=== PATIENT | male | born 1955 | race Two or more races ===

== ENCOUNTER 2020-09-11 17:10 | Inpatient (IN) | payer MEDICARE, MEDICAID ==
[~2020-09-11] VITALS: Ht 172.7 cm; Wt 64.0 kg
[2020-09-11 17:59] LABS: Eosinophils # (auto) 0.1 10 ^3/uL (0-0.8); Monocytes # (auto) 0.5 10 ^3/uL (0-1.3); Neutrophils # (auto) 3.4 10 ^3/uL (1.6-8.6); White Blood Cell 4.6 10^3/uL (4.4-10.8)
[2020-09-11 18:01] LABS: Basophils # (auto) 0.1 10 ^3/uL (0-0.2); Basophils % (auto) 1.8 % (0.0-2.0); Eosinophils % (auto) 2.1 % (0.0-7.0); Hematocrit 29.5 % (41.0-53.0); Hemoglobin 9.4 g/dL (13.5-17.5); Lymphocytes # (auto) 0.5 10 ^3/uL (0.4-5.4); Lymphocytes % (auto) 11.5 % (10.0-50.0); Mean Corpuscular Hemoglobin 24.7 pg (28.0-32.0); Mean Corpuscular Hgb Conc. 31.9 g/dL (32.0-36.0); Mean Corpuscular Volume 77.3 fL (80.0-100.0); Monocytes % (auto) 10.2 % (0.0-12.0); Neutrophils % (auto) 74.4 % (37.0-80.0); Nucleated Red Blood Cells % 0.2 %; Red Blood Cells 3.82 10^6/uL (4.5-5.90); Red Cell Distribution Width 17.4 % (11.8-14.3)
[2020-09-11 18:13] LABS: Albumin 3.4 g/dL (3.4-5.0); Anion Gap 5 (5-15); Blood Urea Nitrogen 16 mg/dL (7-18); Calcium 8.6 mg/dL (8.5-10.1); Carbon Dioxide 26 mmol/L (21-32); Chloride 108 mmol/L (98-107); Glucose 92 mg/dL (74-106); Magnesium 2.3 mg/dL (1.6-2.6); Potassium 3.5 mmol/L (3.5-5.1); Sodium 139 mmol/L (136-145)
[2020-09-11 18:29] LABS: Alanine Aminotransferase 26 U/L (16-61); Alkaline Phosphatase 168 U/L (45-117); Aspartate Aminotransferase 28 U/L (15-37); BUN/Creatinine Ratio 10.3; Bilirubin, Total 1.1 mg/dL (0.2-1.0); GFR African American 58 mL/min; GFR Non-African American 48 mL/min; Total Protein 8.3 g/dL (6.4-8.2)
[2020-09-11 18:31] LABS: INR 2.38 (0.9-1.15); Partial Thromboplastin Time 36.6 sec (23.0-31.2)
[2020-09-11] MEDS ORDERED: ONDANSETRON HCL 4 MG/2 ML VIAL IV PRN (20:15)
[2020-09-11] MEDS ORDERED: NITROGLYCERIN 0.4 MG SL TAB SL PRN (20:15)
[2020-09-11] MEDS ORDERED: LORazepam 0.5 MG TAB PO PRN (20:15)
[2020-09-11] MEDS ORDERED: MORPHINE SULFATE INJECTION 2 MG/ML SYRG IV PRN ×2 (20:15)
[2020-09-11] MEDS ORDERED: DOCUSATE CALCIUM 240 MG CAP PO PRN (20:15)
[2020-09-11] MEDS ORDERED: ACETAMINOPHEN 500 MG TAB PO PRN (20:15)
[2020-09-11] MEDS ORDERED: LABETALOL HCL 5 MG/ML 4ML SYRINGE IV PRN (20:15)
[2020-09-11] MEDS: AMOXICILLIN TRIHYDRATE 250 MG CAP PO SCH (22:33)
[2020-09-11] MEDS ORDERED: WARF6TAB21 PO (22:55)
[2020-09-11] MEDS ORDERED: AMOX250C3 PO (23:06)
[2020-09-11 23:11] VITALS: BP 111/68
[2020-09-11 23:13] VITALS: BP 111/68
[2020-09-12 05:00] VITALS: BP 102/53
[2020-09-12 05:31] LABS: Eosinophils # (auto) 0.2 10 ^3/uL (0-0.8); Lymphocytes # (auto) 0.7 10 ^3/uL (0.4-5.4); Monocytes # (auto) 0.4 10 ^3/uL (0-1.3); Neutrophils # (auto) 2.7 10 ^3/uL (1.6-8.6); White Blood Cell 4.1 10^3/uL (4.4-10.8)
[2020-09-12 05:33] LABS: Basophils # (auto) 0 10 ^3/uL (0-0.2); Basophils % (auto) 1.2 % (0.0-2.0); Eosinophils % (auto) 5.6 % (0.0-7.0); Hematocrit 26.6 % (41.0-53.0); Lymphocytes % (auto) 16.6 % (10.0-50.0); Mean Corpuscular Hemoglobin 27.6 pg (28.0-32.0); Mean Corpuscular Hgb Conc. 33.9 g/dL (32.0-36.0); Mean Corpuscular Volume 81.2 fL (80.0-100.0); Monocytes % (auto) 10.1 % (0.0-12.0); Neutrophils % (auto) 66.5 % (37.0-80.0); Nucleated Red Blood Cells % 0.2 %; Red Blood Cells 3.27 10^6/uL (4.5-5.90); Red Cell Distribution Width 17.4 % (11.8-14.3)
[2020-09-12 05:43] LABS: INR 2.67 (0.9-1.15)
[2020-09-12 05:45] LABS: Potassium 3.6 mmol/L (3.5-5.1)
[2020-09-12 05:52] LABS: Albumin 3.1 g/dL (3.4-5.0); BUN/Creatinine Ratio 12.5; Calcium 8.3 mg/dL (8.5-10.1); Total Protein 7.3 g/dL (6.4-8.2)
[2020-09-12] MEDS: AMOXICILLIN TRIHYDRATE 250 MG CAP PO SCH ×3 (05:57→22:39)
[2020-09-12 09:01] VITALS: BP 101/52
[2020-09-12] MEDS: PANTOPRAZOLE 40 MG TAB PO SCH (09:07)
[2020-09-12 12:35] VITALS: BP 103/63
[2020-09-12 16:17] VITALS: BP 103/64
[2020-09-12] MEDS ORDERED: WARFARIN SODIUM 2 MG TAB PO ONE (17:00)
[2020-09-12] MEDS: FUROSEMIDE 20 MG TAB PO SCH (17:40)
[2020-09-12 21:49] VITALS: BP 88/60
[2020-09-12] MEDS: CARVEDILOL 3.125 MG TAB PO SCH (22:00)
[2020-09-12 23:13] LABS: Urine Bacteria NONE SEEN /hpf (None Seen); Urine Blood Negative /uL (Negative); Urine WBC 6 /hpf (0 - 3)
[2020-09-13 05:00] VITALS: BP 101/65
[2020-09-13] MEDS: AMOXICILLIN TRIHYDRATE 250 MG CAP PO SCH ×2 (06:29→14:08)
[2020-09-13] MEDS: FUROSEMIDE 20 MG TAB PO SCH (06:30)
[2020-09-13 06:57] LABS: Basophils # (auto) 0 10 ^3/uL (0-0.2); Hemoglobin 9.1 g/dL (13.5-17.5); Lymphocytes # (auto) 0.8 10 ^3/uL (0.4-5.4); Monocytes # (auto) 0.5 10 ^3/uL (0-1.3); Neutrophils # (auto) 3.3 10 ^3/uL (1.6-8.6); White Blood Cell 4.9 10^3/uL (4.4-10.8)
[2020-09-13 07:00] LABS: Eosinophils # (auto) 0.3 10 ^3/uL (0-0.8); Eosinophils % (auto) 5.5 % (0.0-7.0); Lymphocytes % (auto) 16.6 % (10.0-50.0); Mean Corpuscular Hemoglobin 26.7 pg (28.0-32.0); Mean Corpuscular Hgb Conc. 32.6 g/dL (32.0-36.0); Mean Corpuscular Volume 81.8 fL (80.0-100.0); Monocytes % (auto) 9.1 % (0.0-12.0); Neutrophils % (auto) 67.8 % (37.0-80.0); Red Blood Cells 3.42 10^6/uL (4.5-5.90); Red Cell Distribution Width 17.4 % (11.8-14.3)
[2020-09-13 07:08] LABS: INR 2.82 (0.9-1.15)
[2020-09-13 07:16] LABS: Chloride 111 mmol/L (98-107); Potassium 3.6 mmol/L (3.5-5.1); Sodium 140 mmol/L (136-145)
[2020-09-13 07:25] LABS: Alanine Aminotransferase 20 U/L (16-61); Albumin 2.9 g/dL (3.4-5.0); Alkaline Phosphatase 147 U/L (45-117); Anion Gap 5 (5-15); Aspartate Aminotransferase 24 U/L (15-37); Bilirubin, Total 0.7 mg/dL (0.2-1.0); Blood Urea Nitrogen 17 mg/dL (7-18); Calcium 7.9 mg/dL (8.5-10.1); Carbon Dioxide 24 mmol/L (21-32); GFR African American 70 mL/min; GFR Non-African American 58 mL/min; Glucose 74 mg/dL (74-106); Total Protein 7.5 g/dL (6.4-8.2)
[2020-09-13 09:00] VITALS: BP 104/69
[2020-09-13] MEDS: CARVEDILOL 3.125 MG TAB PO SCH (09:30)
[2020-09-13] MEDS: PANTOPRAZOLE 40 MG TAB PO SCH (09:31)
[2020-09-13] MEDS ORDERED: LISINOPRIL 5 MG TAB PO SCH (10:00)
[2020-09-13 13:00] VITALS: BP 95/62
[2020-09-13 15:09] VITALS: BP 95/62
[2020-09-13] MEDS ORDERED: WARFARIN SODIUM 2 MG TAB PO ONE (17:00)
== END 2020-09-13 17:15 | disposition home or self-care (01) | DRG 308 ==
LOC: ER 17:10 → EDBD 17:10 → TELE 20:10 → TELE-CENTR 22:15
PROVIDERS: ADMIT Family Medicine; ATTEND Internal Medicine
DX: I48.92 Unspecified atrial flutter (principal); I50.43 Acute on chronic combined systolic (congestive) and diastolic (congestive) heart failure; D68.69 Other thrombophilia; I48.19 Other persistent atrial fibrillation; R07.89 Other chest pain; N18.30 Chronic kidney disease, stage 3 unspecified; K08.89 Other specified disorders of teeth and supporting structures; I27.20 Pulmonary hypertension, unspecified; Z20.822 Contact with and (suspected) exposure to COVID-19; D63.8 Anemia in other chronic diseases classified elsewhere; Z79.01 Long term (current) use of anticoagulants; Z79.899 Other long term (current) drug therapy; Z95.2 Presence of prosthetic heart valve; Z83.3 Family history of diabetes mellitus
CPT/HCPCS: 36415; 71045; 80053; 81001; 83735; 83880; 84443; 84484; 85025; 85379; 85610; 85730; 87426; 93005; 93306; 99291; G0378